=== PATIENT | female | born 1970 | race Caucasian/White ===

== ENCOUNTER 2016-10-23 16:10 | Observation (INO) | payer OTHER ==
[~2016-10-23] VITALS: Ht 45.7 cm; Wt 66.5 kg
--- NOTE | 2016-10-23 18:17 | ED ORDER SUMMARY ---
..... Patient: BEATA GALLOWAY OrderSheet [facility] VisitID: [id number] [place] [address] 46y, F Registration Date/Time: 10/23/2016 ORDER SHEET Weight: 65.7 kg (stated) Allergies: Codeine GENERAL ORDERS: CBC w Diff Urgent (16:49 10/23/2016 Keely VALADEZ) (Ack 16:51 PWeiler ER Tech1) (18:22 LWhalen R.N.) CMP Urgent (16:49 10/23/2016 Keely VALADEZ) (Ack 16:51 PWeiler ER Tech1) (18:22 LWhalen R.N.) TSH Urgent (16:49 10/23/2016 Keely VALADEZ) (Ack 16:51 PWeiler ER Tech1) (18:22 LWhalen R.N.) Type & Cross (critical anemia) (transfusion) Urgent (17:54 10/23/2016 Keely VALADEZ) (Ack 18:03 PWeiler ER Tech1) (18:23 LWhalen R.N.) Transfuse PRBCs (3 units PRBC's) (17:55 10/23/2016 Keely VALADEZ) (18:23 LWhalen R.N.) MEDICATION ORDERS: IV FLUIDS: IV NS : initial bolus none -, then 100 mL/hr for 4h (NOW); Routine (17:53 10/23/2016 Keely VALADEZ) (18:28 JBest R.N.) ORDER SHEET NOTES: [Electronically signed by Huber Rausch MD (19:23 10/23/2016)] [Electronically signed by Sheriff Saturnino Lazcano (20:08 10/23/2016)] [Electronically locked/signed by Sheriff Saturnino Lazcano (20:10/23/2016)]
--- NOTE | 2016-10-23 18:17 | ED NURSING NOTES ---
Clinical Report - Nurses [facility] [address] [place] [address] 10/23/2016 16:12 Patient: BEATA GALLOWAY TRIAGE Triage time 16:28. Acuity: LEVEL 3. Chief Complaint: (Anemia). --16:28 Sheriff Lazcano R.N. 16:21 10/23/16. BP: 157/83. HR: 78. RR: 18. O2 saturation: 100%. Temp: 98.1 F. Pain level now: 0/10. --16:28 Sheriff Lazcano R.N. Weight: 65.7 kg stated. Height/Length: 66 inches Per Patient. BMI: 23.4. --16:23 Sheriff Lazcano R.N. Medications Zoloft Oral (Tablet 50 mg) 1 tablet, daily. --16:25 Sheriff Lazcano R.N. Allergies Codeine. Side-Effect(itching) --16:26 Sheriff Lazcano R.N. History Arrived by private vehicle. Historian: patient. Unaccompanied. Onset. (25 years ago). ( Had iron two years ago. [place] tired and wants to be checked to make sure hemoglobin is not too low.). SURGERY HX: . ( Abdomen). SOCIAL HX: Smoker- current status unknown (cigarette) (4). No alcohol use or drug use. FALL RISK ASSESSMENT: Fall risk assessment completed. No fall risk identified. NUTRITIONAL RISK ASSESSMENT: The nutritional risk assessment revealed no deficiencies. FUNCTIONAL ASSESSMENT: Functional assessment: no impairments noted. LEARNING NEEDS ASSESSMENT: The learning needs assessment revealed no barriers. SKIN INTEGRITY ASSESSMENT: Skin integrity risk assessment completed. No skin integrity risk identified. --16:28 Sheriff Lazcano R.N. PROBLEMS: Bipolar Disorder. Depression. Dental Pain. Immunizations. LNMP - Last Normal Menstrual Period. Abdominal Pain. --16:26 Sheriff Lazcano R.N. PHYSICAL ASSESSMENT Ambulatory to room. GENERAL / NEURO / PSYCH: Alert. Oriented X 4. Appears in no acute distress. RESPIRATORY: Respirations not labored. CVS: Capillary refill less than 2 seconds. Pulses within normal limits. SKIN: Skin intact. Skin is warm and dry. Normal skin turgor. --16:28 Sheriff Lazcano R.N. NURSING PROGRESS NOTES Head of bed elevated. Two patient identifiers checked. Call light placed in reach. Side rails up x 2. Bed placed in lowest position. Brakes of bed on. --16:29 Sheriff Lazcano R.N. Critical value received by Martín. Hgb: 6.6. ED physician notifed of critical value. --17:25 Martín Messer R.N. 18:27 10/23/2016 Site #1 started via IV in the left antecubital space with an 20g angiocath; two attempts. Saline lock flushed with 10 mL saline. --18:27 Crystal Downey R.N. 18:27 10/23/2016 Started bag #1 1000 mL IV Fluids IV NS (Saline); at 100 mL/hr over 10 hour(s) via site #1 via IV pump. Allergies verified and confirmed 5 rights. IV patency established. IV site checked: no pain, redness, or swelling. IV flushed thoroughly pre- and post-medication administration. --18:28 Crystal Downey R.N. DISPOSITION / DISCHARGE Admitted (2004 PM). Transported via stretcher by [employer]. Report was given to a nurse via a phone call. Report included patient's care, treatment, medications, reviewed medication reconcilliation, and condition (including any recent changes or anticipated changes). All questions were answered. Report was acknowledged. Patient's personal items include: shirt, pants, socks and shoes; items were placed in belongings bag, given to the patient and transported with the patient. --20:07 Sheriff Lazcano R.N. Locked/Released at 10/23/2016 20:08 by Sheriff Lazcano R.N.
--- NOTE | 2016-10-23 18:17 | ED CLINICAL REPORT ---
Clinical Report - Physicians/Mid Levels [facility] [address] [place] [address] 10/23/2016 16:12 Patient: BEATA GALLOWAY Time Seen: 16:46 Ethan 2016. Arrived- By private vehicle. Historian- patient. CPT: ER phys charges level 5 (#[id number]). HISTORY OF PRESENT ILLNESS Chief Complaint: Fatigue. ( Onset. (25 years ago). ( Had iron started two years ago. [place] tired and wants to be checked to make sure hemoglobin is not too low.) Says she was seen a month ago and HGB was 6.9. Did not get transfusion. Has seen a foundation maker who did a bone marrow biopsy. There is no clear diagnosis for her iron deficiency anemia.). This started as noted. and is still present. At its maximum, severity described as moderate. When seen in the E.D., severity described as moderate. Modifying factors. Not worsened by anything. Not relieved by anything. The patient has had fatigue and weakness. (near syncope spells.). Similar symptoms previously: Recent medical care: Not recently seen/assessed. REVIEW OF SYSTEMS No fever, chills, decreased vision, double vision or nasal congestion. No epistaxis, mouth sores, sore throat, calf pain or chest pain. No cough, pedal edema, abdominal pain, black stools or bloody stools. No urinary frequency, hematuria, neck pain, skin rash or alteration in mental status. No diabetic symptoms, easy bruising or difficulty with urination. The patient has had fatigue, difficulty breathing, dizziness, weakness, and symptoms of hypothyroidism. All systems otherwise negative, except as recorded above. PAST HISTORY Chronic iron deficiency anemia Bipolar Disorder. Depression. Dental Pain. Immunizations. LNMP - Last Normal Menstrual Period. Abdominal Pain. Medications: Zoloft Oral (Tablet 50 mg) 1 tablet, daily. Allergies: Codeine. Side-Effect(itching). SOCIAL HISTORY Light tobacco smoker (cigarette)- less than 1/2 a pack per day. No alcohol use or drug use. ADDITIONAL NOTES The nursing notes have been reviewed. PHYSICAL EXAM Vital Signs: 10/23/2016 16:21 BP: 157/83. HR: 78. RR: 18. O2 saturation: 100%. Temp: 98.1 F. Pain level now: 0/10. Appearance: Alert. Patient in mild distress. Eyes: Pale conjunctivae. ENT: Nose normal. Pharynx normal. Neck: Normal inspection. CVS: Normal heart rate and rhythm. 3/6 mid systolic murmur. Pulses normal. Respiratory: No respiratory distress. Breath sounds normal. Chest nontender. Abdomen: Soft and nontender. Back: Normal inspection. Skin: Skin warm. No rash. Pallor. Extremities: Extremities exhibit normal ROM. No lower extremity edema. Neuro: Oriented X 3. No motor deficit. No sensory deficit. LABS, X-RAYS, AND EKG Laboratory Tests: CBC w Diff: (KEMAR: 10/23/2016 17:00) ( MsgRcvd 10/23/2016 18:34) Final results Test Result Flag Units (Reference) WHITE BLOOD COUNT 7.8 K/uL (4.5-11.5) RED BLOOD COUNT 3.82 L M/uL (4.00-5.20) HEMOGLOBIN 6.6 *L gm/dL (12.0-16.0) CRITICAL RESULTS CALLEDCalled to HANNAH RODRIGES,ER 10/23/16 1725Were 2 patient identifiers used? YWas the result read back? Y HEMATOCRIT 22.4 L % (36.0-46.0) MEAN CELL VOLUME 59 L fL (80-100) MEAN CORPUSCULAR HGB 17 L pg (26-34) MEAN CORPUSCULAR HGB CONC 30 L g/dL (31-37) RED CELL DISTRIBUTION WIDTH 18.8 H % (11.6-14.8) PLATELET COUNT 308 K/uL (150-400) NEUTROPHIL % 66.2 % (50-75) LYMPH % 24.9 L % (25-40) MONO % 7.2 % (3-14) EOSINOPHIL % 1.0 % (0-4) BASOPHIL % 0.7 % (0-2) RBC MORPHOLOGY 2+ TARGET CELLS~~2+ ANISOCYTOSIS~~4+ MICROCYTOSIS~~4+ HYPOCHROMIA CMP: (KEMAR: 10/23/2016 17:00) ( MsgRcvd 10/23/2016 17:46) Final results Test Result Flag Units (Reference) GLUCOSE 89 mg/dL (70-110) BUN 20 H mg/dL (7-18) CREATININE 0.7 mg/dL (0.6-1.3) Estimated GFR >60 mL/min Estimated GFR- >60 mL/min Note: Persistent reduction over 3 months in eGFR<60 mL/min/1.73 m2 defines CKD. Patients with eGFR values>=60 mL/min/1.73 m2 may also have CKD if evidence ofpersistent proteinuria. Additional information may be foundat www.[email or web address].org. SODIUM 141 mmol/L (136-145) POTASSIUM 3.8 mmol/L (3.5-5.1) CHLORIDE 104 mmol/L (98-107) CARBON DIOXIDE 28 mmol/L (21-32) CALCIUM 8.2 L mg/dL (8.5-10.1) TOTAL PROTEIN 6.8 g/dL (6.4-8.2) ALBUMIN 3.4 g/dL (3.3-5.0) BILIRUBIN, TOTAL 0.2 mg/dL (0.0-1.0) ALKALINE PHOSPHATASE 104 U/L (46-116) AST (SGOT) 15 U/L (15-37) ALT (SGPT) 17 U/L (12-78) THYROID STIMULATING HORMONE 0.723 uIU/mL (0.34-3.74) Type & Cross: (KEMAR: 10/23/2016 18:03) ( MsgRcvd 10/23/2016 19:07) IP Test Result Flag Units (Reference) LEUKOREDUCED PACKED CELLS [id number] OP PC XM COMPATIBLE [id number] OP PC XM COMPATIBLE [id number] OP PC XM COMPATIBLE PATIENT BLOOD TYPE O Positive ANTIBODY SCREEN NEGATIVE . PROGRESS AND PROCEDURES Course of Care: IV NS Transfuse 3 units PRBC's ordered. Patient is stable. Patient/family counseled. Disposition orders written. Disposition: Admitted to Acute Care. CLINICAL IMPRESSION Critical anemia: Symptomatic Chronic iron deficiency anemia of unclear etiology. (Electronically signed by Huber Rausch MD 10/23/2016 19:23)
--- NOTE | 2016-10-23 18:17 | ED ORDER SUMMARY ---
..... Patient: BEATA GALLOWAY OrderSheet [facility] VisitID: [id number] [place] [address] 46y, F Registration Date/Time: 10/23/2016 ORDER SHEET Weight: 65.7 kg (stated) Allergies: Codeine GENERAL ORDERS: CBC w Diff Urgent (16:49 10/23/2016 Keely VALADEZ) (Ack 16:51 PWeiler ER Tech1) (18:22 LWhalen R.N.) CMP Urgent (16:49 10/23/2016 Keely VALADEZ) (Ack 16:51 PWeiler ER Tech1) (18:22 LWhalen R.N.) TSH Urgent (16:49 10/23/2016 Keely VALADEZ) (Ack 16:51 PWeiler ER Tech1) (18:22 LWhalen R.N.) Type & Cross (critical anemia) (transfusion) Urgent (17:54 10/23/2016 Keely VALADEZ) (Ack 18:03 PWeiler ER Tech1) (18:23 LWhalen R.N.) Transfuse PRBCs (3 units PRBC's) (17:55 10/23/2016 Keely VALADEZ) (18:23 LWhalen R.N.) MEDICATION ORDERS: IV FLUIDS: IV NS : initial bolus none -, then 100 mL/hr for 4h (NOW); Routine (17:53 10/23/2016 Keely VALADEZ) (18:28 JBest R.N.) ORDER SHEET NOTES: [Electronically signed by Huber Rausch MD (19:23 10/23/2016)] [Electronically signed by Sheriff Saturnino Lazcano (20:08 10/23/2016)] [Electronically locked/signed by Sheriff Saturnino Lazcano (20:10/23/2016)]
--- NOTE | 2016-10-23 18:17 | ED NURSING NOTES ---
Clinical Report - Nurses [facility] [address] [place] [address] 10/23/2016 16:12 Patient: BEATA GALLOWAY TRIAGE Triage time 16:28. Acuity: LEVEL 3. Chief Complaint: (Anemia). --16:28 Sheriff Lazcano R.N. 16:21 10/23/16. BP: 157/83. HR: 78. RR: 18. O2 saturation: 100%. Temp: 98.1 F. Pain level now: 0/10. --16:28 Sheriff Lazcano R.N. Weight: 65.7 kg stated. Height/Length: 66 inches Per Patient. BMI: 23.4. --16:23 Sheriff Lazcano R.N. Medications Zoloft Oral (Tablet 50 mg) 1 tablet, daily. --16:25 Sheriff Lazcano R.N. Allergies Codeine. Side-Effect(itching) --16:26 Sheriff Lazcano R.N. History Arrived by private vehicle. Historian: patient. Unaccompanied. Onset. (25 years ago). ( Had iron two years ago. [place] tired and wants to be checked to make sure hemoglobin is not too low.). SURGERY HX: . ( Abdomen). SOCIAL HX: Smoker- current status unknown (cigarette) (4). No alcohol use or drug use. FALL RISK ASSESSMENT: Fall risk assessment completed. No fall risk identified. NUTRITIONAL RISK ASSESSMENT: The nutritional risk assessment revealed no deficiencies. FUNCTIONAL ASSESSMENT: Functional assessment: no impairments noted. LEARNING NEEDS ASSESSMENT: The learning needs assessment revealed no barriers. SKIN INTEGRITY ASSESSMENT: Skin integrity risk assessment completed. No skin integrity risk identified. --16:28 Sheriff Lazcano R.N. PROBLEMS: Bipolar Disorder. Depression. Dental Pain. Immunizations. LNMP - Last Normal Menstrual Period. Abdominal Pain. --16:26 Sheriff Lazcano R.N. PHYSICAL ASSESSMENT Ambulatory to room. GENERAL / NEURO / PSYCH: Alert. Oriented X 4. Appears in no acute distress. RESPIRATORY: Respirations not labored. CVS: Capillary refill less than 2 seconds. Pulses within normal limits. SKIN: Skin intact. Skin is warm and dry. Normal skin turgor. --16:28 Sheriff Lazcano R.N. NURSING PROGRESS NOTES Head of bed elevated. Two patient identifiers checked. Call light placed in reach. Side rails up x 2. Bed placed in lowest position. Brakes of bed on. --16:29 Sheriff Lazcano R.N. Critical value received by Martín. Hgb: 6.6. ED physician notifed of critical value. --17:25 Martín Messer R.N. 18:27 10/23/2016 Site #1 started via IV in the left antecubital space with an 20g angiocath; two attempts. Saline lock flushed with 10 mL saline. --18:27 Crystal Downey R.N. 18:27 10/23/2016 Started bag #1 1000 mL IV Fluids IV NS (Saline); at 100 mL/hr over 10 hour(s) via site #1 via IV pump. Allergies verified and confirmed 5 rights. IV patency established. IV site checked: no pain, redness, or swelling. IV flushed thoroughly pre- and post-medication administration. --18:28 Crystal Downey R.N. DISPOSITION / DISCHARGE Admitted (2004 PM). Transported via stretcher by [employer]. Report was given to a nurse via a phone call. Report included patient's care, treatment, medications, reviewed medication reconcilliation, and condition (including any recent changes or anticipated changes). All questions were answered. Report was acknowledged. Patient's personal items include: shirt, pants, socks and shoes; items were placed in belongings bag, given to the patient and transported with the patient. --20:07 Sheriff Lazcano R.N. Locked/Released at 10/23/2016 20:08 by Sheriff Lazcano R.N.
--- NOTE | 2016-10-23 18:17 | ED CLINICAL REPORT ---
Clinical Report - Physicians/Mid Levels [facility] [address] [place] [address] 10/23/2016 16:12 Patient: BEATA GALLOWAY Time Seen: 16:46 Ethan 2016. Arrived- By private vehicle. Historian- patient. CPT: ER phys charges level 5 (#[id number]). HISTORY OF PRESENT ILLNESS Chief Complaint: Fatigue. ( Onset. (25 years ago). ( Had iron started two years ago. [place] tired and wants to be checked to make sure hemoglobin is not too low.) Says she was seen a month ago and HGB was 6.9. Did not get transfusion. Has seen a military professional who did a bone marrow biopsy. There is no clear diagnosis for her iron deficiency anemia.). This started as noted. and is still present. At its maximum, severity described as moderate. When seen in the E.D., severity described as moderate. Modifying factors. Not worsened by anything. Not relieved by anything. The patient has had fatigue and weakness. (near syncope spells.). Similar symptoms previously: Recent medical care: Not recently seen/assessed. REVIEW OF SYSTEMS No fever, chills, decreased vision, double vision or nasal congestion. No epistaxis, mouth sores, sore throat, calf pain or chest pain. No cough, pedal edema, abdominal pain, black stools or bloody stools. No urinary frequency, hematuria, neck pain, skin rash or alteration in mental status. No diabetic symptoms, easy bruising or difficulty with urination. The patient has had fatigue, difficulty breathing, dizziness, weakness, and symptoms of hypothyroidism. All systems otherwise negative, except as recorded above. PAST HISTORY Chronic iron deficiency anemia Bipolar Disorder. Depression. Dental Pain. Immunizations. LNMP - Last Normal Menstrual Period. Abdominal Pain. Medications: Zoloft Oral (Tablet 50 mg) 1 tablet, daily. Allergies: Codeine. Side-Effect(itching). SOCIAL HISTORY Light tobacco smoker (cigarette)- less than 1/2 a pack per day. No alcohol use or drug use. ADDITIONAL NOTES The nursing notes have been reviewed. PHYSICAL EXAM Vital Signs: 10/23/2016 16:21 BP: 157/83. HR: 78. RR: 18. O2 saturation: 100%. Temp: 98.1 F. Pain level now: 0/10. Appearance: Alert. Patient in mild distress. Eyes: Pale conjunctivae. ENT: Nose normal. Pharynx normal. Neck: Normal inspection. CVS: Normal heart rate and rhythm. 3/6 mid systolic murmur. Pulses normal. Respiratory: No respiratory distress. Breath sounds normal. Chest nontender. Abdomen: Soft and nontender. Back: Normal inspection. Skin: Skin warm. No rash. Pallor. Extremities: Extremities exhibit normal ROM. No lower extremity edema. Neuro: Oriented X 3. No motor deficit. No sensory deficit. LABS, X-RAYS, AND EKG Laboratory Tests: CBC w Diff: (KEMAR: 10/23/2016 17:00) ( MsgRcvd 10/23/2016 18:34) Final results Test Result Flag Units (Reference) WHITE BLOOD COUNT 7.8 K/uL (4.5-11.5) RED BLOOD COUNT 3.82 L M/uL (4.00-5.20) HEMOGLOBIN 6.6 *L gm/dL (12.0-16.0) CRITICAL RESULTS CALLEDCalled to HANNAH RODRIGES,ER 10/23/16 1725Were 2 patient identifiers used? YWas the result read back? Y HEMATOCRIT 22.4 L % (36.0-46.0) MEAN CELL VOLUME 59 L fL (80-100) MEAN CORPUSCULAR HGB 17 L pg (26-34) MEAN CORPUSCULAR HGB CONC 30 L g/dL (31-37) RED CELL DISTRIBUTION WIDTH 18.8 H % (11.6-14.8) PLATELET COUNT 308 K/uL (150-400) NEUTROPHIL % 66.2 % (50-75) LYMPH % 24.9 L % (25-40) MONO % 7.2 % (3-14) EOSINOPHIL % 1.0 % (0-4) BASOPHIL % 0.7 % (0-2) RBC MORPHOLOGY 2+ TARGET CELLS~~2+ ANISOCYTOSIS~~4+ MICROCYTOSIS~~4+ HYPOCHROMIA CMP: (KEMAR: 10/23/2016 17:00) ( MsgRcvd 10/23/2016 17:46) Final results Test Result Flag Units (Reference) GLUCOSE 89 mg/dL (70-110) BUN 20 H mg/dL (7-18) CREATININE 0.7 mg/dL (0.6-1.3) Estimated GFR >60 mL/min Estimated GFR- >60 mL/min Note: Persistent reduction over 3 months in eGFR<60 mL/min/1.73 m2 defines CKD. Patients with eGFR values>=60 mL/min/1.73 m2 may also have CKD if evidence ofpersistent proteinuria. Additional information may be foundat www.kidney.org. SODIUM 141 mmol/L (136-145) POTASSIUM 3.8 mmol/L (3.5-5.1) CHLORIDE 104 mmol/L (98-107) CARBON DIOXIDE 28 mmol/L (21-32) CALCIUM 8.2 L mg/dL (8.5-10.1) TOTAL PROTEIN 6.8 g/dL (6.4-8.2) ALBUMIN 3.4 g/dL (3.3-5.0) BILIRUBIN, TOTAL 0.2 mg/dL (0.0-1.0) ALKALINE PHOSPHATASE 104 U/L (46-116) AST (SGOT) 15 U/L (15-37) ALT (SGPT) 17 U/L (12-78) THYROID STIMULATING HORMONE 0.723 uIU/mL (0.34-3.74) Type & Cross: (KEMAR: 10/23/2016 18:03) ( MsgRcvd 10/23/2016 19:07) IP Test Result Flag Units (Reference) LEUKOREDUCED PACKED CELLS [id number] OP PC XM COMPATIBLE [id number] OP PC XM COMPATIBLE [id number] OP PC XM COMPATIBLE PATIENT BLOOD TYPE O Positive ANTIBODY SCREEN NEGATIVE . PROGRESS AND PROCEDURES Course of Care: IV NS Transfuse 3 units PRBC's ordered. Patient is stable. Patient/family counseled. Disposition orders written. Disposition: Admitted to Acute Care. CLINICAL IMPRESSION Critical anemia: Symptomatic Chronic iron deficiency anemia of unclear etiology. (Electronically signed by Huber Rausch MD 10/23/2016 19:23)
--- NOTE | 2016-10-23 19:05 | History & Physical Report ---
Admission Admit Date 10/23/16 Chief complaint: Generalized weakness HPI: This is a 46-year-old white female who had generalized weakness for last 3 months along with the dizziness and inability to drive without any chest pain but she had a palpitations also dyspnea and dizziness. Her hemoglobin was 6.8 in August 22 but patient did not have any time or transfusion and medical attention but ultimately she decided to comment today. Past medical history: Chronic iron deficiency anemia bipolar and opioid dependency Surgical history: and lap banding Medications: Zoloft 50 mg daily, methadone 80 mg daily Allergies: Codeine and tramadol Social history: Patient is single and has 2 kids, lives alone, smoking: Half pack a day for 25 years, alcohol: None, illicit drugs: Used that 2 days ago before that she used it 2 years ago. Family history: Diabetes mellitus and lung cancer Review of system: No recent weight changes, no difficulty with vision or hearing, no runny nose congestion cough or sore throat, no chest pain, no nausea no vomiting no abdominal pain, normal regular bowel movements, no dysuria frequency or incontinence, no myalgia or arthralgia, no headaches but tingling and numbness in hands no localized weakness no syncope History Chief Complaint Generlized weakness History of Present Illness This is a 46-year-old white female who had generalized weakness for last 3 months along with the dizziness and inability to drive without any chest pain but she had a palpitations also dyspnea and dizziness. Her hemoglobin was 6.8 in August 22 but patient did not have any time or transfusion and medical attention but ultimately she decided to comment today. Social History Patient is single and has 2 kids, lives alone, smoking: Half pack a day for 25 years, alcohol: None, illicit drugs: Used that 2 days ago before that she used it 2 years ago. Family History Relation not specified for: Diabetes Medications and Allergies Medications Current Medications Sig/Lizz Start time Last Medication Dose Route Stop Time Status Admin Sertraline HCl 50 MG DAILY 10/24 0900 AC PO Dextrose/Sodium 1,000 ML ASDIRECTED 10/23 1845 AC Chloride IV Allergies Coded Allergies: Codeine (10/24/16) Tramadol (10/24/16) Reconcile Medications Scheduled Medications Sertraline HCl (Zoloft) 50 MG TAB 50 MG PO DAILY (Reported) Review of Systems Other No recent weight changes, no difficulty with vision or hearing, no runny nose congestion cough or sore throat, no chest pain, no nausea no vomiting no abdominal pain, normal regular bowel movements, no dysuria frequency or incontinence, no myalgia or arthralgia, no headaches but tingling and numbness in hands no localized weakness no syncope Physical Exam General Appearance Alert, Oriented X3, No acute distress HEENT Normal exam Lungs Clear to auscultation Neck Supple, No JVD, 2+ carotid pulse wo bruit Cardiovascular Regular rate and rhythm, Normal S1 and S2, No murmurs, gallops, rubs Abdomen Normal bowel sounds, Soft, No tenderness Extremities No cyanosis, No edema, Normal pulses, No tenderness Skin No Rashes, No Significant Lesions Neurological Normal speech, Normal tone, Reflexes 2+ and equal, Cranial nerves intact, Strength 5/5 x4 ext's Psych/Mental Status Mental status normal, Mood normal LAB Results Laboratory Tests 10/23 1700 Chemistry Plasma Sodium (136 - 145 mmol/L) 141 Plasma Potassium (3.5 - 5.1 mmol/L) 3.8 Plasma Chloride (98 - 107 mmol/L) 104 CO2 (Enzymatic) (21 - 32 mmol/L) 28 BUN (7 - 18 mg/dL) 20 Creatinine (0.6 - 1.3 mg/dL) 0.7 Est GFR ( Amer) (mL/min) >60 Est GFR (Non-Af Amer) (mL/min) >60 Glucose (70 - 110 mg/dL) 89 Plasma Calcium (8.5 - 10.1 mg/dL) 8.2 Total Bilirubin (0.0 - 1.0 mg/dL) 0.2 AST (15 - 37 U/L) 15 ALT (12 - 78 U/L) 17 Alkaline Phosphatase (46 - 116 U/L) 104 Total Protein (6.4 - 8.2 g/dL) 6.8 Albumin (3.3 - 5.0 g/dL) 3.4 TSH 3rd Generation (0.34 - 3.74 uIU/mL) 0.723 Hematology WBC (4.5 - 11.5 K/uL) 7.8 RBC (4.00 - 5.20 M/uL) 3.82 Hgb (12.0 - 16.0 gm/dL) 6.6 Hct (36.0 - 46.0 %) 22.4 MCV (80 - 100 fL) 59 MCH (26 - 34 pg) 17 RDW (11.6 - 14.8 %) 18.8 Neut % (Auto) (50 - 75 %) 66.2 Lymph % (Auto) (25 - 40 %) 24.9 Mcculloch % (Auto) (3 - 14 %) 7.2 Eos % (Auto) (0 - 4 %) 1.0 Baso % (Auto) (0 - 2 %) 0.7 Plt Count, EDTA (150 - 400 K/uL) 308 RBC Morphology (5215 A) 4+ HYPOCHROMIA PUBS MCHC (31 - 37 g/dL) 30 Assessment and Plan Problem List 1. Severe anemia Plan patient will be admitted to obs. for 3 unit of RBC transfusion
--- NOTE | 2016-10-23 20:10 | ED MED RECONCILIATION SUMMARY ---
Patient: BEATA GALLOWAY Medication Reconciliation Report [facility] VisitID: [id number] [address] [place] [address] 46y, F Registration Date/Time: 10/23/2016 Weight: 65.7 kg Height/Length: 66 in. BMI: 23.4 ALLERGIES: Codeine The patient's Home Medications are listed below: THE FOLLOWING MEDICATIONS NEED TO BE RECONCILED: Zoloft Oral (50 mg) 1 tablet, daily The source(s) of the original Home Medication information: Not obtained. The following Medications were given to the patient in the Emergency Department: IV NS IV Fluids bolus 0, then 100 mL/hr, administered: 10/23/2016 6:27:00 PM The following Medications were prescribed to the patient: None.
--- NOTE | 2016-10-23 20:10 | ED DISCHARGE INSTRUCTIONS ---
Patient: BEATA GALLOWAY General Instructions [facility] VisitID: [id number] [address] [place] [address] 46y, F Registration Date/Time: 10/23/2016 Critical anemia: Symptomatic Chronic iron deficiency anemia of unclear etiology. (Electronically signed by Huber Rausch MD 10/23/2016 19:23)
--- NOTE | 2016-10-23 20:10 | ED MAR SUMMARY ---
..... Medication Administration Record [facility] [address] [place] [address] Patient: BEATA GALLOWAY Visit ID: [id number] 46y, F Weight: 65.7 kg Height/Length: 66 in BMI: 23.4 ALLERGIES: Codeine Start 18:27 10/23/2016 Crystal Downey R.N. Medication Administered: IV NS (SALINE), Dose: IV Fluids over 10 hour(s), Rate: 100 mL/hr, Dispensed: 1000 mL bag, Site: #1 left AC. Medication Ordered: IV NS : initial bolus none -, then 100 mL/hr for 4h (NOW); Routine.
--- NOTE | 2016-10-23 20:10 | ED MAR SUMMARY ---
..... Medication Administration Record [facility] [address] [place] [address] Patient: BEATA GALLOWAY Visit ID: [id number] 46y, F Weight: 65.7 kg Height/Length: 66 in BMI: 23.4 ALLERGIES: Codeine Start 18:27 10/23/2016 Crystal Downey R.N. Medication Administered: IV NS (SALINE), Dose: IV Fluids over 10 hour(s), Rate: 100 mL/hr, Dispensed: 1000 mL bag, Site: #1 left AC. Medication Ordered: IV NS : initial bolus none -, then 100 mL/hr for 4h (NOW); Routine.
--- NOTE | 2016-10-23 20:10 | ED DISCHARGE INSTRUCTIONS ---
Patient: BEATA GALLOWAY General Instructions [facility] VisitID: [id number] [address] [place] [address] 46y, F Registration Date/Time: 10/23/2016 Critical anemia: Symptomatic Chronic iron deficiency anemia of unclear etiology. (Electronically signed by Huber Rausch MD 10/23/2016 19:23)
--- NOTE | 2016-10-23 20:10 | ED MED RECONCILIATION SUMMARY ---
Patient: BEATA GALLOWAY Medication Reconciliation Report [facility] VisitID: [id number] [address] [place] [address] 46y, F Registration Date/Time: 10/23/2016 Weight: 65.7 kg Height/Length: 66 in. BMI: 23.4 ALLERGIES: Codeine The patient's Home Medications are listed below: THE FOLLOWING MEDICATIONS NEED TO BE RECONCILED: Zoloft Oral (50 mg) 1 tablet, daily The source(s) of the original Home Medication information: Not obtained. The following Medications were given to the patient in the Emergency Department: IV NS IV Fluids bolus 0, then 100 mL/hr, administered: 10/23/2016 6:27:00 PM The following Medications were prescribed to the patient: None.
[2016-10-23 20:21] VITALS: BP 142/88
[2016-10-23 20:40] VITALS: BP 146/85
[2016-10-23 20:56] VITALS: BP 150/89
[2016-10-23 21:25] VITALS: BP 145/88
[2016-10-23 22:06] VITALS: BP 132/83
[2016-10-24] VITALS (12 sets, daily range): BP systolic 130–163; BP diastolic 79–90
[2016-10-24] MEDS ORDERED: ZOLOFT50 MG PO (00:22)
--- NOTE | 2016-10-24 06:40 | Progress Note ---
Subjective General Note Date: October 24, 2016 Admission Date: October 23, 2016 Hospital Day: 2 PCP: None Status: Observation, before meals Advanced Directive: FULL CODE Room: 203-B Admission History: The patient is a 46-year-old white female with a significant past medical history of iron deficiency anemia, bipolar disease, opiate dependency who presented to [facility] emergency department on the day of admission secondary to lightheadedness. GI evaluation was consistent with severe iron deficiency anemia. Secondary to the above, the patient was admitted by Zion Anderson M.D. for further evaluation and treatment. For other history present illness, past medical history, family history, social history, review of systems, and admission physical examination please see the patient's history and physical examination and ER visit note in the patient's medical record. Subjective: The patient states she is doing much better today. Ready for discharge. Patient requests: Discharge Medications and Allergies Medications Current Medications Sig/Lizz Start time Last Medication Dose Route Stop Time Status Admin Sertraline HCl 50 MG DAILY 10/24 0900 AC PO Dextrose/Sodium 1,000 ML ASDIRECTED 10/23 1845 AC 10/24 Chloride IV 0629 Allergies Coded Allergies: Codeine (10/24/16) Tramadol (10/24/16) Reconcile Medications Scheduled Medications Sertraline HCl (Zoloft) 50 MG TAB 50 MG PO DAILY (Reported) Physical Exam Vital Signs / I&Os Vital Signs Date Time Temp Pulse Resp B/P Pulse O2 O2 Flow FiO2 Ox Delivery Rate 10/24 0618 98.1 64 18 163/88 99 Room Air 10/24 0511 98.1 60 18 142/88 99 Room Air 10/24 0400 98.2 64 18 150/90 99 Room Air / 0345 98.1 60 18 146/82 98 Room Air / 0331 97.9 60 18 152/83 99 / 0304 97.7 64 20 130/79 98 07/01 0246 97.9 65 16 130/80 99 Room Air / 0151 98.1 67 16 136/90 99 Room Air / 0052 98.1 60 16 136/83 97 Room Air 07/ 0026 97.7 63 16 147/87 98 Room Air 07/ 0002 65 16 147/89 97 Room Air 10/23 2206 98.2 66 16 132/83 97 Room Air 10/23 2124 98.2 66 16 145/88 99 Room Air 10/24 2055 98.1 67 16 150/89 97 Room Air 10/24 2039 98.2 65 16 146/85 100 Room Air 10/23 2020 98.1 66 16 142/88 100 Room Air I&O 10/24 0000 10/23 1600 10/23 0800 Intake Total 310 125 Output Total Balance 310 125 General Appearance Alert, Oriented X3, Cooperative, No acute distress Lungs Clear to auscultation, Normal air movement Cardiovascular Regular rate and rhythm, Normal S1 and S2, grade 2/6 systolic murmur present. Abdomen Normal bowel sounds, Soft, No tenderness Extremities No cyanosis, No clubbing Psych/Mental Status Mental status normal, Mood normal LAB Results Laboratory Tests 10/23 1700 Chemistry Plasma Sodium (136 - 145 mmol/L) 141 Plasma Potassium (3.5 - 5.1 mmol/L) 3.8 Plasma Chloride (98 - 107 mmol/L) 104 CO2 (Enzymatic) (21 - 32 mmol/L) 28 BUN (7 - 18 mg/dL) 20 Creatinine (0.6 - 1.3 mg/dL) 0.7 Est GFR ( Amer) (mL/min) >60 Est GFR (Non-Af Amer) (mL/min) >60 Glucose (70 - 110 mg/dL) 89 Plasma Calcium (8.5 - 10.1 mg/dL) 8.2 Total Bilirubin (0.0 - 1.0 mg/dL) 0.2 AST (15 - 37 U/L) 15 ALT (12 - 78 U/L) 17 Alkaline Phosphatase (46 - 116 U/L) 104 Total Protein (6.4 - 8.2 g/dL) 6.8 Albumin (3.3 - 5.0 g/dL) 3.4 TSH 3rd Generation (0.34 - 3.74 uIU/mL) 0.723 Hematology WBC (4.5 - 11.5 K/uL) 7.8 RBC (4.00 - 5.20 M/uL) 3.82 Hgb (12.0 - 16.0 gm/dL) 6.6 Hct (36.0 - 46.0 %) 22.4 MCV (80 - 100 fL) 59 MCH (26 - 34 pg) 17 RDW (11.6 - 14.8 %) 18.8 Neut % (Auto) (50 - 75 %) 66.2 Lymph % (Auto) (25 - 40 %) 24.9 [place] % (Auto) (3 - 14 %) 7.2 Eos % (Auto) (0 - 4 %) 1.0 Baso % (Auto) (0 - 2 %) 0.7 Plt Count, EDTA (150 - 400 K/uL) 308 RBC Morphology (5215 A) 4+ HYPOCHROMIA PUBS MCHC (31 - 37 g/dL) 30 Assessment and Plan Problem List 1. Iron deficiency anemia Status Chronic Onset Date Unknown Plan -Status post improved -H&H 9.5/31.2. [facility] Current status: Fair, improved Anticipated discharge date: Today Anticipated discharge placement: Home Patient care time: Time in chart review, patient interview, physical exam, CPOE, and care documentation: Greater than 30 mins Visit to patient today: 1 Complexity of care: Moderate DVT prophylaxis: SCD For other recommendations regarding discharge diet, activity, followup, and discharge medications please see the patient's discharge instructions. Greater than 30 min. was spent in the patient's discharge preparation including discharge interview and physical examination, progress note, discharge instructions, and discharge summary E&M Codes Discharge: Observation - All/[id number]
--- NOTE | 2016-10-24 06:42 | Discharge Summary ---
Discharge Summary Report Admit Date 10/23/16 Discharge Date 10/24/16 Admission Diagnosis 1. Iron deficiency anemia Discharge Diagnosis 1. Iron deficiency anemia Brief History The patient is a 46-year-old white female with a significant past medical history of iron deficiency anemia, bipolar disease, opiate dependency who presented to [facility] emergency department on the day of admission secondary to lightheadedness. GI evaluation was consistent with severe iron deficiency anemia. Secondary to the above, the patient was admitted by Zion Anderson M.D. for further evaluation and treatment. For other history present illness, past medical history, family history, social history, review of systems, and admission physical examination please see the patient's history and physical examination and ER visit note in the patient's medical record. Hospital Course The following problems and their management were noted during the patient's hospitalization: 1. Iron deficiency anemia The patient presented with findings of iron deficiency anemia. Admission H&H 6.6/22.4. Patient underwent transfusion of 3 units packed RBCs per Dr. Anderson's orders. Posttransfusion H&H was 9.5/31.2. Patient has long-standing history of iron malabsorption with chronic iron deficiency anemia. She has failed to keep appointments for iron administration. The patient has been referred to [facility] to establish care and scheduling of outpatient demonstration of iron. Patient was up and living well without problems. Eating well without problems at the time of discharge. She is aware of the need to follow-up on a routine basis in the future regarding her iron deficiency/iron malabsorption. Lab/Imaging Laboratory Tests 10/23 1700 Chemistry Plasma Sodium (136 - 145 mmol/L) 141 Plasma Potassium (3.5 - 5.1 mmol/L) 3.8 Plasma Chloride (98 - 107 mmol/L) 104 CO2 (Enzymatic) (21 - 32 mmol/L) 28 BUN (7 - 18 mg/dL) 20 Creatinine (0.6 - 1.3 mg/dL) 0.7 Est GFR ( Amer) (mL/min) >60 Est GFR (Non-Af Amer) (mL/min) >60 Glucose (70 - 110 mg/dL) 89 Plasma Calcium (8.5 - 10.1 mg/dL) 8.2 Total Bilirubin (0.0 - 1.0 mg/dL) 0.2 AST (15 - 37 U/L) 15 ALT (12 - 78 U/L) 17 Alkaline Phosphatase (46 - 116 U/L) 104 Total Protein (6.4 - 8.2 g/dL) 6.8 Albumin (3.3 - 5.0 g/dL) 3.4 TSH 3rd Generation (0.34 - 3.74 uIU/mL) 0.723 Hematology WBC (4.5 - 11.5 K/uL) 7.8 RBC (4.00 - 5.20 M/uL) 3.82 Hgb (12.0 - 16.0 gm/dL) 6.6 Hct (36.0 - 46.0 %) 22.4 MCV (80 - 100 fL) 59 MCH (26 - 34 pg) 17 RDW (11.6 - 14.8 %) 18.8 Neut % (Auto) (50 - 75 %) 66.2 Lymph % (Auto) (25 - 40 %) 24.9 [place] % (Auto) (3 - 14 %) 7.2 Eos % (Auto) (0 - 4 %) 1.0 Baso % (Auto) (0 - 2 %) 0.7 Plt Count, EDTA (150 - 400 K/uL) 308 RBC Morphology (5215 A) 4+ HYPOCHROMIA PUBS MCHC (31 - 37 g/dL) 30 Discharge Instructions/Meds For other recommendations regarding discharge diet, activity, followup, and discharge medications please see the patient's discharge instructions. Discharge condition: Fair, improved Greater than 30 min. was spent in the patient's discharge preparation including discharge interview and physical examination, progress note, discharge instructions, and discharge summary The patient was interviewed and examined on the day of discharge. E&M Codes Discharge: Observation - All/[id number]
--- NOTE | 2016-10-24 08:37 | Provider's Discharge Care Plan ---
Problem, Goal, Plan Problem List 1. Iron deficiency anemia Goals: Improve disease control, Prevent disease progress Instructions: Follow up as directed, Take meds as directed, Follow up with [facility] next week to establish care
== END 2016-10-24 08:45 | disposition home or self-care (01) ==
LOC: ED SRH 16:10 → TRANS SRH 18:20 → ACUTE2 SRH 20:23
PROVIDERS: ADMIT Neuromusculoskeletal Medicine, Sports Medicine
PROC: 30233N1 Transfusion of Nonautologous Red Blood Cells into Peripheral Vein, Percutaneous Approach (ICD-10-PCS; principal; 2016-10-23)
PROC: 30233N1 Transfusion of Nonautologous Red Blood Cells into Peripheral Vein, Percutaneous Approach (ICD-10-PCS; 2016-10-24)
DX: D50.9 Iron deficiency anemia, unspecified (principal); R00.2 Palpitations; R42 Dizziness and giddiness; F11.20 Opioid dependence, uncomplicated; F31.9 Bipolar disorder, unspecified; F17.210 Nicotine dependence, cigarettes, uncomplicated
CPT/HCPCS: 29230; 90001; 90047; 90074; 90100; 90155; 91004; 91544; 93140; 95059